=== PATIENT | male | born 1990 | race African-American/Black ===

== ENCOUNTER 2024-06-07 21:03 | Emergency (ER) | payer OTHER ==
[2024-06-07 21:15] VITALS: BP 132/84; PULSE 89; RESP 18; TEMP 98.9; BMI 28.1
[2024-06-07] MEDS ORDERED: ACETAMINOPHEN 325 MG TABLET (FP) ONE (21:59)
[2024-06-07] MEDS ORDERED: IBUPROFEN 400 MG TABLET (FP) PO ONE (22:00)
[2024-06-07] MEDS: IBUPROFEN 400 MG TABLET (FP) PO ONE (22:03)
[2024-06-07] MEDS: ACETAMINOPHEN 325 MG TABLET (FP) PO ONE (22:03)
[2024-06-07] MEDS ORDERED: DIPHTH,PERTUSS(ACELL),TET 0.5 ML DISP.SYRIN IM ONE (22:27)
[2024-06-07] MEDS: DIPHTH,PERTUSS(ACELL),TET 0.5 ML DISP.SYRIN IM ONE (22:30)
== END 2024-06-07 22:56 | disposition home or self-care (01) ==
LOC: JERFT 21:03
DX: M25.511 Pain in right shoulder (principal); R07.89 Other chest pain; V00.841A Fall from standing electric scooter, initial encounter
CPT/HCPCS: 71046-TC-FY; 73030-TC-RT-FY; 99284-25